=== PATIENT | male | born 1970 | race Caucasian/White ===

== ENCOUNTER 2016-06-29 21:11 | Emergency (ER) | payer BC | END 2016-06-29 23:25 | disposition home or self-care (01) | LOC: ER1 21:11 | DX: S16.1XXA Strain of muscle, fascia and tendon at neck level, initial encounter (principal); S09.90XA Unspecified injury of head, initial encounter; F17.210 Nicotine dependence, cigarettes, uncomplicated; I25.10 Atherosclerotic heart disease of native coronary artery without angina pectoris; Z95.1 Presence of aortocoronary bypass graft; W22.8XXA Striking against or struck by other objects, initial encounter | CPT/HCPCS: 70450; 72125; 99284; G0480 ==

== ENCOUNTER → 2016-07-29 | Outpatient (CLI) | payer BC | LOC: HEART 5 16:02 | DX: R06.02 Shortness of breath (principal) | CPT/HCPCS: 94010 ==

== ENCOUNTER → 2016-07-29 | Outpatient (CLI) | payer BC | LOC: RAD 14:47 | DX: J90 Pleural effusion, not elsewhere classified (principal) | CPT/HCPCS: 71020 ==

== ENCOUNTER → 2020-10-30 | Outpatient (CLI) | payer BC | LOC: KOH-I 08:00 | DX: M25.561 Pain in right knee (principal); M25.461 Effusion, right knee; M25.361 Other instability, right knee | CPT/HCPCS: 73721 ==